=== PATIENT | male | born 1945 | race Caucasian/White ===

== ENCOUNTER 2021-02-15 09:09 | Emergency (ER) | payer MEDICARE ==
--- NOTE | 2021-02-15 09:35 | ED Physician Documentation ---
PD HPI CHEST PAIN - Stated complaint Stated Complaint: RAPID HEART RATE - Chief complaint Chief Complaint: Cardiac - History obtained from History obtained from: Patient - History of Present Illness Timing - onset: Last night Timing - details: Abrupt onset, Still present Quality: Other (feeling of heart rate going fast). No: Pressure, Sharp Location: Substernal Associated symptoms: Palpitations. No: Shortness of air, Nausea, Vomiting, Feeling faint / dizzy Similar symptoms before: Has not had sx before Recently seen: Not recently seen Review of Systems Constitutional: denies: Fever, Chills Nose: denies: Rhinorrhea / runny nose, Congestion Throat: denies: Sore throat Respiratory: denies: Cough GI: reports: Diarrhea (2 nights ago for about 12 hours, had several episodes of watery diarrhea without blood. Then improved.). denies: Abdominal Pain, Nausea, Vomiting Musculoskeletal: denies: Neck pain, Back pain Neurologic: reports: Generalized weakness. denies: Focal weakness, Numbness, Near syncope, Altered mental status PD PAST MEDICAL HISTORY - Past Medical History Cardiovascular: Hypertension, High cholesterol, Coronary artery disease Respiratory: None Neuro: None Endocrine/Autoimmune: None GI: GERD : Benign prostate hypertrophy - Past Surgical History Past Surgical History: Yes General: Appendectomy - Present Medications Home Medications: Ambulatory Orders Medication Instructions Recorded Confirmed Clopidogrel Bisulfate [Clopidogrel] 75 mg PO DAILY 04/22/13 02/14/14 Cyclobenzaprine [Flexeril] 10 mg PO TID PRN #20 tablet 04/22/13 02/14/14 Finasteride [Proscar] 5 mg PO DAILY 04/22/13 02/14/14 Metoprolol Succinate [Toprol Xl] 50 mg PO BID 04/22/13 02/14/14 Pantoprazole Sodium 40 mg PO BID 04/22/13 02/14/14 Pravastatin Sodium [Pravachol] 80 mg PO DAILY 04/22/13 02/14/14 Tamsulosin HCl 0.4 mg PO HS 04/22/13 02/14/14 Trazodone HCl 50 mg PO HS 04/22/13 02/14/14 Topiramate 25 mg PO BID 02/14/14 02/14/14 Magnesium Oxide [Mag Ox] 400 mg PO DAILY #15 tablet 02/15/21 Potassium Chloride 8 meq PO DAILY #10 02/15/21 - Allergies Allergies/Adverse Reactions: Allergies Allergy/AdvReac Type Severity Reaction Status Date / Time No Known Drug Allergies Allergy Verified 02/15/21 09:28 - Social History Does the pt smoke?: No Smoking Status: Never smoker Does the pt drink ETOH?: No Does the pt have substance abuse?: No PD ED PE NORMAL - Vitals Vital signs reviewed: Yes - General General: Alert and oriented X 3, No acute distress, Well developed/nourished - HEENT HEENT: Moist mucous membranes - Neck Neck: Supple, no meningeal sign, No adenopathy - Cardiac Cardiac: No murmur, No rub. No: RRR (initially with rapid irregular heart rate that changed to regular with rate of 80s while talking with the patient. ) - Respiratory Respiratory: Clear bilaterally - Abdomen Abdomen: Soft, Non tender, Non distended - Male Male : Deferred - Rectal Rectal: Deferred - Derm Derm: Normal color, Warm and dry - Extremities Extremities: No tenderness to palpate, Normal ROM s pain, No edema, No calf tenderness / cord Results - Vitals Vitals: Vital Signs - 24 hr 02/15/21 02/15/21 02/15/21 09:28 09:31 10:10 Temperature 36.5 C 36.5 C Heart Rate 80 80 69 Respiratory 18 18 15 Rate Blood Pressure 126/83 H 126/83 H 98/77 O2 Saturation 98 97 95 02/15/21 02/15/21 02/15/21 10:30 11:00 11:30 Temperature 36.5 C Heart Rate 75 68 75 Respiratory 21 16 18 Rate Blood Pressure 118/82 H 116/80 107/77 O2 Saturation 95 98 96 02/15/21 12:29 Temperature Heart Rate 63 Respiratory 18 Rate Blood Pressure 115/77 O2 Saturation 98 Oxygen O2 Source Room air - EKG (time done) 09:15 Rate: Rate (enter#) (128) Rhythm: Atrial fibrillation [place]: Normal QRS: Normal Ischemia: Normal ST segments. No: ST elevation c/w ischemia, ST depression 09:57 Rhythm: NSR [place]: Normal Intervals: Normal [place] QRS: Normal Ischemia: Normal ST segments. No: ST elevation c/w ischemia, ST depression - Labs Labs: Laboratory Tests 02/15/21 02/15/21 02/15/21 09:28 09:28 09:28 WBC 12.5 H RBC 4.17 L Hgb 13.5 L Hct 40.6 L MCV 97.4 H MCH 32.4 H MCHC 33.3 RDW 14.2 Plt Count 538 H MPV 9.7 Neut # (Auto) 8.6 H Lymph # (Auto) 1.9 Reynolds # (Auto) 1.5 H Eos # (Auto) 0.3 Baso # (Auto) 0.1 Absolute Nucleated RBC 0.00 Nucleated RBC % 0.0 Sodium 138 Potassium 3.5 Chloride 97 L Carbon Dioxide 28 Anion Gap 13.0 BUN 13 Creatinine 1.1 Estimated GFR (MDRD) 66 L Glucose 192 H Calcium 9.7 Magnesium Total Bilirubin 1.4 H AST 18 ALT 17 Alkaline Phosphatase 58 Troponin I High Sens 47.8 H* Total Protein 7.1 Albumin 4.3 Globulin 2.8 Albumin/Globulin Ratio 1.5 Lipase 29 02/15/21 02/15/21 09:28 11:17 WBC RBC Hgb Hct MCV MCH MCHC RDW Plt Count MPV Neut # (Auto) Lymph # (Auto) Reynolds # (Auto) Eos # (Auto) Baso # (Auto) Absolute Nucleated RBC Nucleated RBC % Sodium Potassium Chloride Carbon Dioxide Anion Gap BUN Creatinine Estimated GFR (MDRD) Glucose Calcium Magnesium 1.6 L Total Bilirubin AST ALT Alkaline Phosphatase Troponin I High Sens 51.1 H* Total Protein Albumin Globulin Albumin/Globulin Ratio Lipase PD MEDICAL DECISION MAKING - ED course Complexity details: reviewed results (K and Mag are low/low normal, so will add supplements. troponin mildly elevated but without interval change in 2 hours, so apparently relates to rate related type 2 injury. ), considered differential (Patient with new onset atrial fib which converted spontaneously while in ER. He has had ECHO in the past year for ongoing eval of aortic valve/aorta. Is on Plavix for prior CVA. On metoprolol for HTN. No need to change meds. ), d/w patient Departure - Departure Disposition: 01 Home, Self Care Clinical Impression: Paroxysmal atrial fibrillation with rapid ventricular response, Hypomagnesemia Condition: Stable Record reviewed to determine appropriate education?: Yes Instructions: ED Afib Prescriptions: Magnesium Oxide [Mag Ox] 400 mg PO DAILY #15 tablet Potassium Chloride 8 meq PO DAILY #10 Comments: Your initial EKG showed atrial fibrillation with a fast heart rate. However it changed to a normal rhythm without any intervention on our part. At this point I would have you continue your usual medication, in particular the clopidogrel and metoprolol. Add magnesium daily for the next couple of weeks as your magnesium level was slightly low at 1.6. Your potassium was at the low end of normal at 3.5 so you could add a mild potassium supplement as well. Follow-up with your mine motor operator when back home, call for an appointment. I gave you copies of your EKGs to bring to your mine motor operator for review. Return to the ER if symptoms occurring again that are persistent. Discharge Date/Time: 02/15/21 12:25
[2021-02-15 09:41] LABS: BASOPHILS # (AUTO) 0.1 10^3/uL (0.0-0.1); BASOPHILS % (AUTO) 0.8 %; EOSINOPHILS # (AUTO) 0.3 10^3/uL (0.0-0.7); EOSINOPHILS % (AUTO) 2.7 %; HCT - HEMATOCRIT 40.6 % (42.0-52.0); HGB - HEMOGLOBIN 13.5 g/dL (14.0-18.0); LYMPHOCYTES # (AUTO) 1.9 10^3/uL (1.5-3.5); LYMPHOCYTES % (AUTO) 15.5 %; MEAN CORPUSCULAR HEMOGLOBIN 32.4 pg (27.0-31.0); MEAN CORPUSCULAR HGB CONC 33.3 g/dL (32.0-36.0); MEAN CORPUSCULAR VOLUME 97.4 fL (80.0-94.0); MEAN PLATELET VOLUME 9.7 fL (7.4-11.4); MONOCYTES # (AUTO) 1.5 10^3/uL (0.0-1.0); MONOCYTES % (AUTO) 11.6 %; NEUTROPHILS # (AUTO) 8.6 10^3/uL (1.5-6.6); NEUTROPHILS % (AUTO) 68.8 %; PLT - PLATELET COUNT 538 10^3/uL (130-450); RED BLOOD COUNT 4.17 10^6/uL (4.70-6.10); RED CELL DISTRIBUTION WIDTH 14.2 % (12.0-15.0); WHITE BLOOD COUNT 12.5 x10^3/uL (4.8-10.8)
[2021-02-15] MEDS ORDERED: SODIUM CHLORIDE 0.9% 500 ML IV STA (09:51)
[2021-02-15 10:12] LABS: ALBUMIN 4.3 g/dL (3.2-5.5); ALBUMIN/GLOBULIN RATIO 1.5 (1.0-2.2); BILIRUBIN,TOTAL 1.4 mg/dL (0.2-1.0); CALCIUM 9.7 mg/dL (8.5-10.3); CREATININE 1.1 mg/dL (0.6-1.2); POTASSIUM 3.5 mmol/L (3.5-5.0); TOTAL PROTEIN 7.1 g/dL (6.7-8.2)
--- NOTE | 2021-02-15 10:14 | XRAY Report ---
PROCEDURE: Chest 1 View X-Ray INDICATIONS: Chest pain TECHNIQUE: One view of the chest was acquired. COMPARISON: None FINDINGS: Surgical changes and devices: None. Lungs and pleura: No pleural effusions or pneumothorax. Lungs are clear. Mediastinum: Mediastinal contours appear normal. Heart size is normal. Bones and chest wall: No suspicious bony lesions. Overlying soft tissues appear unremarkable. IMPRESSION: No acute cardiopulmonary disease process. Reviewed by: Natalia Foreman MD, PhD on 02/15/2021 10:13 AM PDT Approved by: Natalia Foreman MD, PhD on 02/15/2021 10:13 AM PDT Station ID: [id number]
[2021-02-15] MEDS ORDERED: MAGNESIUM SULFATE 2 GRAM 2 GM/50 ML BAG IV ONE (10:18)
[2021-02-15] MEDS ORDERED: POTASSIUM CHLORIDE 20 MEQ TABLET PO STA (10:18)
[2021-02-15 12:30] VITALS: BP 115/77
== END 2021-02-15 12:25 | disposition home or self-care (01) ==
LOC: ED 09:09
DX: I48.0 Paroxysmal atrial fibrillation (principal); E83.42 Hypomagnesemia; I10 Essential (primary) hypertension
CPT/HCPCS: 36415; 71045; 80053; 83690; 83735; 84484; 85025; 93005; 96361; 96365; 99284; A9270